=== PATIENT | male | born 1995 | race Caucasian/White ===

== ENCOUNTER 2019-12-06 16:02 | Inpatient (IN) ==
--- NOTE | 2019-12-06 16:44 | Emergency Department Note ---
Impression & Plan Septic prepatellar bursitis of right knee, Fever ED Provider Note NAME: ABBIE GUILLORY AGE: 24 SEX: M : 1995 ARRIVES VIA: Walk-In INFORMANT: Patient, ED PROVIDER(S): Mk Sam MD Chief Complaint: Knee pain, fever HPI: Patient is present with concern for knee pain and fever. The patient states he woke up this morning and had some difficulty with ranging the right knee. The patient describes it as hot burning and sharp. The patient did try taking some Aleve this morning with only mild relief. The patient states that touching it or moving it makes it worse. The patient was seen in the outpatient setting and referred here due to concern for his fever. Patient denies any tick bites. Patient does occasionally use alcohol. He does not use tobacco. The patient did receive Rocephin in the outpatient setting. ROS: See HPI for pertinent positives and negatives. A total of 10 systems were reviewed and otherwise negative. Past medical history: See below Surgical history: See below Social history: See below Physical Exam: GENERAL: Mildly ill in appearance. NAD, non-toxic. Wearing a mask. EYE EXAM: Normal conjunctiva. PERRL, no anisocoria and EOM's grossly intact w/o pain. NECK: Supple, no nuchal rigidity, no adenopathy, non-tender. No signs of meningismus. LUNGS: Clear to auscultation. Normal chest wall mechanics. HEART: Tachycardic and regular, no MRG. ABDOMEN: Abdomen soft, non-tender, normo-active bowel sounds, no masses, no rebound or guarding. BACK: No CVA TTP. SKIN: No rashes and no bruising. UPPER EXTREMITIES: Upper extremities are grossly normal. LOWER EXTREMITIES: Warm erythematous superior aspect of the right knee with associated TTP, no crepitus, decreased range of motion secondary to pain, neurovascular intact distally, compartments are soft. NEURO EXAM: A&O x3, cranial nerves II-XII grossly intact, normal speech, moves all 4 extremities on command w/o issue. Differential diagnoses: Septic arthritis, septic bursitis. Viral syndrome, otitis, pharyngitis, pneumonia, influenza, meningitis, urinary tract infection, sepsis, bacteremia, as well as other pathologies. Course: Patient was seen and evaluated the bedside. Full history physical exam was performed. EKG: Indication: Tachycardia Sinus tachycardia rate of 104, normal intervals, normal axis, no obvious ST changes or T WI. Imaging Studies: Radiology results as stated below per my review in the radiologist's interpretation: XR knee RT 3V CLINICAL HISTORY: swelling, redness, fever COMPARISON: None FINDINGS: Alignment of the right knee is anatomic. There is no fracture or join t effusion. There is no osseous lesion. There is no radiographic evidence of osteomyelitis. There is moderate pre and infrapatellar soft tissue swelling. No soft tissue gas is evident. IMPRESSION: 1. No osseous abnormality of the right knee. No joint effusion. 2. Moderate pre and infrapatellar soft tissue swelling. This could reflect cellulitis or bursitis. ACT 112: Negative or not required by law. Electronically signed by: Wei Ellison M.D. 12/06/2019 5:41 PM Dictated: 12/06/191739 Transcribed: 12/06/191739 XR chest 1V portable CLINICAL HISTORY: SEPSIS COMPARISON STUDY: No previous studies for comparison. FINDINGS: Lung volumes are normal. Lungs are clear. There is no pneumothorax or pleural effusion. Cardiac size is normal. Mediastinal contours are normal. There is no evidence for pulmonary edema. Old mid shaft fracture of the right clavicle is noted with callus formation. IMPRESSION: No acute cardiopulmonary findings. ACT 112: Negative or not required by law. Electronically signed by: Wei Ellison M.D. 12/06/2019 5:40 PM Dictated: 12/06/191738 Transcribed: 12/06/191738 Cardiac monitoring: An order was placed for continuous cardiac monitoring. The monitor shows a rate of 104 with sinus tachycardia rhythm. MDM: Patient was seen due to concern for knee pain and fever. The patient did have some prepatellar swelling. The patient does work in [employer] and thus does do a lot of work on his hands and knees. I did perform a quick bedside [id number] ultrasound which did show some prepatellar fluid. No obvious joint effusion. The patient was verbally consented for a bursa aspiration as well as an attempt for a right knee arthrocentesis. The patient did have some cloudy fluid approximate 7 cc removed from the right prepatellar bursa. No fluid was obtained from the right knee joint. Patient did receive vancomycin due to concern for pre-patellar septic bursitis as the patient did have a fever associated white count tachycardia. Patient's kidney function is unremarkable. Tracely elevated bilirubin at 1.3. Lyme's negative. Patient did receive IV fluids. Given the patient's persistent tachycardia and associated symptoms that would meet for sepsis I did recommend that he stay for further treatment. Patient's x-ray only showed the prepatellar swelling. Given this and the fact that I was unable to see a large amount of joint fluid upon [id number] ultrasound I believe septic arthritis to be less likely. The patient did have improved range of motion after prepatellar aspiration was completed. Furthermor e there was no evidence of any joint effusion on the x-ray. The patient does appear improved compared to when the patient initially had arrived. Patient did have rigors initially but have subsequently resolved. Patient is agreeable to current plan of care. I did speak the on-call hospitalist Dr. Quinn who agreed to further evaluate treat the patient. Patient was subsequently admitted to the medicine service. Past Med/Surg History Medical History (Updated 12/06/19 @ 19:30 by Mk Sam MD) No significant past medical history Surgical History (Updated 12/06/19 @ 19:29 by Mk Sam MD) No significant past surgical history Social History (Updated 12/06/19 @ 19:29 by Mk Sam MD) Preferred Language: Singaporean Communication Ability: Effective current occupational status: 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AC Feels Safe at Home: Yes Smoking Status: Never smoker Hx Alcohol Use: Yes Hx Substance Use: No Allergies Allergies Allergy/AdvReac Type Severity Reaction Status Date / Time No Known Allergies Allergy Unverified 12/06/19 17:26 Home Meds Home Medications Medication Instructions Recorded Confirmed No Known Home Medications 12/06/19 12/06/19 Results & Data (ED) Vital Signs Vital Signs - 24 hr 12/06/19 16:03 12/06/19 18:57 Temperature 37.1 C Temperature Source Oral Pulse Rate 112 H Pulse Rate [Finger] 120 H Respiratory Rate 18 28 H Respiratory Effort / Characteristics Non-Labored Spontaneous Respiratory Depth Normal Respiratory Pattern Regular Blood Pressure 141/76 H Blood Pressure [Right Arm] 153/75 H Blood Pressure Mean 97 Blood Pressure Mean [Right Arm] 101 Pulse Oximetry 97 99 Oxygen Delivery Method Room Air Sepsis Recent Fever Within 48 Hours No Sepsis New/Unexplained Change in Mental Status No Sepsis Action Taken by Nursing No Action Required Home Medications Current Medication List: was personally reviewed by me Laboratory Data Attestation: I reviewed the patient's lab results. Result diagrams: 12/06/19 17:15 12/06/19 17:15 Lab Results 12/06/19 12/06/19 12/06/19 Range/Units 17:15 17:15 17:15 WBC 17.45 H (4.8-10.8) K/uL RBC 4.92 (4.7-6.1) M/uL Hgb 15.1 (14.0-18.0) g/dL Hct 41.7 L (42-52) % MCV 84.8 (80-100) fL MCH 30.7 (25-34) pg MCHC 36.2 H (32-36) g/dL RDW Std Deviation 38.4 (36.4-46.3) fL RDW Coeff of Linda 12.6 (11.5-14.5) % Plt Count 238 (130-400) K/uL MPV 10.9 H (7.4-10.4) fL Immature Gran % (Auto) 0.4 % Neut % (Auto) 88.0 % Lymph % (Auto) 3.8 % [place] % (Auto) 7.7 % Eos % (Auto) 0.0 % Baso % (Auto) 0.1 % Neut # (Auto) 15.36 H (1.4-6.5) K/uL Lymph # (Auto) 0.67 L (1.2-3.4) K/uL [place] # (Auto) 1.34 H (0.11-0.59) K/uL Eos # (Auto) 0.00 (0-0.5) K/uL Baso # (Auto) 0.01 (0-0.2) K/uL Immature Gran # (Auto) 0.07 H (0.00-0.02) K/uL PT 11.6 (9.0-12.0) Seconds INR 1.1 (0.9-1.1) APTT 24.5 (21.0-31.0) Seconds PTT Ratio 0.9 Sodium 135 L (136-145) mmol/L Potassium 4.1 (3.5-5.1) mmol/L Chloride 104 (98-107) mmol/L Carbon Dioxide 25 (21-32) mmol/L Anion Gap 6.0 (3-11) BUN 14 (7-18) mg/dl Creatinine 0.95 (0.6-1.4) mg/dl Est Cr Clr Drug Dosing 122.7 ml/min Est GFR ( Amer) 128.4 Est GFR (Non-Af Amer) 110.8 BUN/Creatinine Ratio 15.0 (10-20) Glucose 93 (70-99) mg/dl Lactate (0.4-2.0) mmol/L Calcium 9.5 (8.5-10.1) mg/dl Magnesium 2.0 (1.8-2.4) mg/dl Total Bilirubin 1.3 H (0.2-1) mg/dl AST 15 (15-37) U/L ALT 30 (12-78) U/L Alkaline Phosphatase 75 (45-117) U/L Total Protein 8.4 H (6.4-8.2) gm/dl Albumin 4.7 (3.4-5.0) gm/dl Globulin 3.7 (2.5-4.0) gm/dl Albumin/Globulin Ratio 1.3 (0.9-2) Procalcitonin (0-0.5) ng/ml Synovial Source Synovial Color Synovial Appearance Synovial WBC (0-200) /ul Synovial RBC /uL Synovial Polynuclear % % Synovial Mononuclear % % Lyme Disease IgG Ab (Negative) Lyme Disease IgM Ab (Negative) 12/06/19 12/06/19 12/06/19 Range/Units 17:15 17:15 18:20 WBC (4.8-10.8) K/uL RBC (4.7-6.1) M/uL Hgb (14.0-18.0) g/dL Hct (42-52) % MCV (80-100) fL MCH (25-34) pg MCHC (32-36) g/dL RDW Std Deviation (36.4-46.3) fL RDW Coeff of Linda (11.5-14.5) % Plt Count (130-400) K/uL MPV (7.4-10.4) fL Immature Gran % (Auto) % Neut % (Auto) % Lymph % (Auto) % [place] % (Auto) % Eos % (Auto) % Baso % (Auto) % Neut # (Auto) (1.4-6.5) K/uL Lymph # (Auto) (1.2-3.4) K/uL [place] # (Auto) (0.11-0.59) K/uL Eos # (Auto) (0-0.5) K/uL Baso # (Auto) (0-0.2) K/uL Immature Gran # (Auto) (0.00-0.02) K/uL PT (9.0-12.0) Seconds INR (0.9-1.1) APTT (21.0-31.0) Seconds PTT Ratio Sodium (136-145) mmol/L Potassium (3.5-5.1) mmol/L Chloride (98-107) mmol/L Carbon Dioxide (21-32) mmol/L Anion Gap (3-11) BUN (7-18) mg/dl Creatinine (0.6-1.4) mg/dl Est Cr Clr Drug Dosing ml/min Est GFR ( Amer) Est GFR (Non-Af Amer) BUN/Creatinine Ratio (10-20) Glucose (70-99) mg/dl Lactate 1.1 (0.4-2.0) mmol/L Calcium (8.5-10.1) mg/dl Magnesium (1.8-2.4) mg/dl Total Bilirubin (0.2-1) mg/dl AST (15-37) U/L ALT (12-78) U/L Alkaline Phosphatase (45-117) U/L Total Protein (6.4-8.2) gm/dl Albumin (3.4-5.0) gm/dl Globulin (2.5-4.0) gm/dl Albumin/Globulin Ratio (0.9-2) Procalcitonin 0.19 (0-0.5) ng/ml Synovial Source KNEE Synovial Color YELLOW Synovial Appearance CLOUDY Synovial WBC 52018 H (0-200) /ul Synovial RBC 3000 /uL Synovial Polynuclear % 67.7 % Synovial Mononuclear % 32.3 % Lyme Disease IgG Ab Negative (Negative) Lyme Disease IgM Ab Negative (Negative) Administered Medications Vancomycin HCl 2,000 mg/ (Sodium Chloride) 540 mls @ 200 mls/hr IV NOW ONE Stop: 12/06/19 21:05 Last Admin: 12/06/19 18:53 Dose: 200 mls/hr Documented by: [id number] Sodium Chloride (Nss 1000ml) 1,000 mls @ 999 mls/hr IV .Q1H1M ONE Stop: 12/06/19 19:25 Last Admin: 12/06/19 18:53 Dose: 999 mls/hr Documented by: [id number] Discontinued Medications Acetaminophen (Tylenol) 1,000 mg PO NOW STA Stop: 12/06/19 16:50 Last Admin: 12/06/19 17:41 Dose: 1,000 mg Documented by: [id number] Sodium Chloride (Nss 1000ml) 1,000 mls @ 999 mls/hr IV .Q1H1M ONE Stop: 12/06/19 17:49 Last Infusion: 12/06/19 18:50 Dose: 0 mls/hr Documented by: [id number] Admin: 12/06/19 17:41 Dose: 999 mls/hr Documented by: [id number] Lidocaine/Epinephrine (Xylocaine/Epinephrine 1%) 20 ml INFIL NOW ONE Stop: 12/06/19 16:51 Last Admin: 12/06/19 17:42 Dose: 20 ml Documented by: [id number] Lorazepam (Ativan) Confirm Administered Dose 2 mg .ROUTE .STK-MED ONE Stop: 12/06/19 18:01 Last Increment: 12/06/19 18:02 Dose: 1 mg Documented by: [id number] Discharge Plan Visit Data Chief Complaint: Knee Injury/Pain Stated Complaint: RIGHT KNEE PAIN, SWOLLEN ED Provider: Mk Sam Discharge Problem: Septic prepatellar bursitis of right knee, Fever Forms Stand Alone Forms: [facility] Prescriptions Prescriptions: No Action No Known Home Medications RF: 0 Discharge Problem: Fever Qualifiers: Fever type: unspecified Qualified Code(s): R50.9 - Fever, unspecified
[2019-12-06] MEDS ORDERED: SODIUM CHLORIDE 0.9% 1000ML 1,000 ML IV ONE ×2 (16:49→18:25)
[2019-12-06] MEDS ORDERED: ACETAMINOPHEN 500 MG TAB PO STA (16:49)
[2019-12-06] MEDS ORDERED: LIDOCAINE/EPINEPHRINE 1% 20 ML VIAL INFIL ONE (16:50)
[2019-12-06 17:30] LABS: Basophils # (auto) 0.01 K/uL (0-0.2); Basophils % (auto) 0.1 %; Hematocrit (blood only) 41.7 % (42-52); Hemoglobin 15.1 g/dL (14.0-18.0); Immature Granulocytes # (auto) 0.07 K/uL (0.00-0.02); Immature Granulocytes % (auto) 0.4 %; Lymphocytes # (auto) 0.67 K/uL (1.2-3.4); Lymphocytes % (auto) 3.8 %; Mean Corpuscular Hemoglobin 30.7 pg (25-34); Mean Corpuscular Hgb Conc 36.2 g/dL (32-36); Mean Corpuscular Volume 84.8 fL (80-100); Mean Platelet Volume 10.9 fL (7.4-10.4); Monocytes # (auto) 1.34 K/uL (0.11-0.59); Monocytes % (auto) 7.7 %; Neutrophils # (auto) 15.36 K/uL (1.4-6.5); Platelet Count 238 K/uL (130-400); RDW Coefficient of Variation 12.6 % (11.5-14.5); RDW Standard Deviation 38.4 fL (36.4-46.3); Red Blood Count 4.92 M/uL (4.7-6.1); White Blood Count 17.45 K/uL (4.8-10.8)
--- NOTE | 2019-12-06 17:41 | XRay Report ---
XR chest 1V portable CLINICAL HISTORY: SEPSIS COMPARISON STUDY: No previous studies for comparison. FINDINGS: Lung volumes are normal. Lungs are clear. There is no pneumothorax or pleural effusion. Car diac size is normal. Mediastinal contours are normal. There is no evidence for pulmonary edema. Old m id shaft fracture of the right clavicle is noted with callus formation. IMPRESSION: No acute cardiopulmonary findings. ACT 112: Negative or not required by law. Electronically signed by: Wei Ellison M.D. 12/06/2019 5:40 PM
[2019-12-06 17:42] LABS: INR 1.1 (0.9-1.1); Partial Thromboplastin Ratio 0.9; Partial Thromboplastin Time 24.5 Seconds (21.0-31.0); Prothrombin Time 11.6 Seconds (9.0-12.0)
--- NOTE | 2019-12-06 17:42 | XRay Report ---
XR knee RT 3V CLINICAL HISTORY: swelling, redness, fever COMPARISON: None FINDINGS: Alignment of the right knee is anatomic. There is no fracture or joint effusion. There is no osseous lesion. There is no radiographic evidence of osteomyelitis. There is moderate pre and infr apatellar soft tissue swelling. No soft tissue gas is evident. IMPRESSION: 1. No osseous abnormality of the right knee. No joint effusion. 2. Moderate pre and infrapatellar soft tissue swelling. This could reflect cellulitis or bursitis. ACT 112: Negative or not required by law. Electronically signed by: Wei Ellison M.D. 12/06/2019 5:41 PM
[2019-12-06 17:47] LABS: Albumin Level 4.7 gm/dl (3.4-5.0); Calcium 9.5 mg/dl (8.5-10.1); Creatinine Clr Calc Pharmacy 122.7 ml/min; Est GFR (African American) 128.4; Est GFR (Non-African American) 110.8; Potassium 4.1 mmol/L (3.5-5.1)
[2019-12-06 17:50] LABS: Albumin Globulin Ratio 1.3 (0.9-2); Bilirubin,Total 1.3 mg/dl (0.2-1); Globulin 3.7 gm/dl (2.5-4.0); Total Protein 8.4 gm/dl (6.4-8.2)
[2019-12-06] MEDS ORDERED: LORazepam 2 MG/4 ML VIAL ONE (18:00)
[2019-12-06 18:08] LABS: Procalcitonin 0.19 ng/ml (0-0.5)
[2019-12-06 18:18] LABS: Lyme Ab IgG w/WB Rflx Negative (Negative); Lyme Ab IgM w/WB Rflx Negative (Negative)
[2019-12-06] MEDS ORDERED: VANCOMYCIN HCL 2,000 MG in SODIUM CHLORIDE 0.9% 500 ML IV ONE (18:24)
[2019-12-06] MEDS ORDERED: VANCOMYCIN CONSULT ACTIVE PRN ×2 (18:24→19:48)
[2019-12-06 19:11] LABS: Appearance Synovial Fluid CLOUDY; Color Synovial Fluid YELLOW; Mononuclear WBC Synovial 32.3 %; Polynuclear WBC Synovial 67.7 %; RBC Synovial Fluid (A) 3000 /uL; Source Synovial Fluid KNEE; WBC Synovial Fluid (A) 19313 /ul (0-200)
[2019-12-06] MEDS ORDERED: ZOLPIDEM TARTRATE 5 MG TAB PO PRN (19:48)
[2019-12-06] MEDS ORDERED: ONDANSETRON INJ 2 MG/ML 2 ML VIAL IV PRN (19:48)
[2019-12-06] MEDS ORDERED: LORazepam 1 MG/2 ML VIAL IV STA (20:18)
[2019-12-06 20:25] LABS: Appearance Urine Clear (Clear); Bilirubin Urine Negative (Negative); Blood Urine Negative (Negative); Color Urine Yellow; Glucose Urine UA Negative (Negative); Ketones Urine 2+ (Negative); Leukocyte Esterase Urine Negative (Negative); Nitrite Urine Negative (Negative); Protein Urine Negative (Negative); Specific Gravity Urine 1.014 (1.000-1.030); Urobilinogen Urine Negative (Negative)
--- NOTE | 2019-12-06 20:53 | History & Physical Report ---
Date of Service December 06, 2019 Assessment & Plan (1) Septic prepatellar bursitis of right knee: Septic prepatellar bursitis of right knee with associated fever, sinus tachycardia and dehydration- Status post drainage by ED[place] [address]. Continue vancomycin IV begun in the ED, and add ceftriaxone 1 g IV daily. Follow joint culture and sensitivities Present on Admission?: Yes (2) Fever: Tylenol 650 mg p.o. every 6 hours as needed Present on Admission?: Yes (3) Sinus tachycardia: Sinus tachycardia secondary to dehydration and sepsis- Continue IV fluid rehydration. Monitor on telemetry. Present on Admission?: Yes (4) Dehydration: See above Present on Admission?: Yes Admission and Anticipated Discharge Date Admission Date: December 06, 2019 History of Present Illness Chief Complaint: The patient presents to the ED with complaint of right knee pain and fever. Primary Care Provider: Can Goldstein The patient is a 24yo male with no significant PMH who presents to the ED with complaint of right knee pain and fever that began today. He does work on his hands and knees alot at work and at home, and has noted an occasional sharp pain as he has shifted his work over time. He denies recent travels or sick exposures. No history of direct trauma. No tick bites, Allergies Allergy/AdvReac Type Severity Reaction Status Date / Time No Known Allergies Allergy Unverified 12/06/19 17:26 Home Medications Home Medications Medication Instructions Recorded Confirmed Type No Known Home Medications 12/06/19 12/06/19 History Past Med/Surg History Medical History (Updated 12/06/19 @ 20:51 by Bruce Kamara MD) No significant past medical history Surgical History (Updated 12/06/19 @ 19:29 by Mk Sam MD) No significant past surgical history Social History (Updated 12/06/19 @ 19:29 by Mk Sam MD) Preferred Language: Haitian Communication Ability: Effective current occupational status: 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[employer] Feels Safe at Home: Yes Smoking Status: Never smoker Hx Alcohol Use: Yes Hx Substance Use: No Review of Systems Review of Systems: The patient denies chest pain, palpitations, shortness of breath, dyspnea on exertion, cough, sore throat, sweats,fatigue, nausea, vomiting, diarrhea , constipation, abdominal pain, pelvic pain, blood in urine or stool, dysuria, urinary frequency or urgency, lightheadedness, dizziness, headache, memory loss, loss of consciousness, rash, abnormal bruising or bleeding, focal or generalized weakness, numbness or tingling in arms , generalized arthralgias or myalgias, back or neck pain, or night sweats. The review of systems is otherwise negative other than for that already noted above, and at least 10 systems have been reviewed. Physical Exam Physical Exam: The patient is awake, alert and oriented 3, well developed and well nourished, normocephalic and atraumatic, lying in bed and in no acute distress. HEENT--PERRL, EOMI, mucous membranes and oropharynx dry. Neck--supple. No JVD. No bruits. Thyroid normal, trachea midline, no adenopathy. Heart--tachycardic and regular. Normal S1 and S2. No murmurs, rubs or gallops. Lungs--clear bilaterally, no respiratory distress, no accessory muscle use. Abdomen--normal bowel sounds and soft. Nontender. Nondistended, no hernias or masses, no organomegaly. Extremities--no cyanosis or clubbing. No edema. There are good distal pulses b/l. Dermatologic--normal skin turgor, normal color, no abnormal lymph nodes, no rash. Neurologic--cranial nerves II through XII grossly intact. Rheumatologic--normal range of motion. right knee is s/p draining of prepatellar bursa. Psychiatric--normal affect. Results & Data Results & Data ([facility]) Vital Signs (Past 12 Hours) Vital Signs Temp Pulse Pulse Resp BP BP Pulse Ox 12/06/19 20:21 120 H 13 99 12/06/19 20:10 113 H 20 97 12/06/19 20:02 115 H 21 97 12/06/19 19:51 116 H 21 98 12/06/19 19:40 125 H 27 H 98 12/06/19 19:30 122 H 21 127/60 99 12/06/19 19:21 124 H 21 100 12/06/19 19:10 113 H 22 98 12/06/19 19:00 117 H 19 129/59 L 98 12/06/19 18:57 120 H 28 H 153/75 H 99 12/06/19 18:50 115 H 22 99 12/06/19 18:41 114 H 21 100 12/06/19 18:35 119 H 22 153/75 H 98 12/06/19 18:30 113 H 14 98 12/06/19 18:20 117 H 20 99 12/06/19 18:11 117 H 18 99 12/06/19 18:00 116 H 16 12/06/19 17:50 106 H 20 12/06/19 17:41 104 H 15 12/06/19 16:03 98.8 F 112 H 18 141/76 H 97 Laboratory Results Laboratory Results WBC 17.45 K/uL (4.8-10.8) H 12/06/19 17:15 RBC 4.92 M/uL (4.7-6.1) 12/06/19 17:15 Hgb 15.1 g/dL (14.0-18.0) 12/06/19 17:15 Hct 41.7 % (42-52) L 12/06/19 17:15 MCV 84.8 fL (80-100) 12/06/19 17:15 MCH 30.7 pg (25-34) 12/06/19 17:15 MCHC 36.2 g/dL (32-36) H 12/06/19 17:15 RDW Std Deviation 38.4 fL (36.4-46.3) 12/06/19 17:15 RDW Coeff of Linda 12.6 % (11.5-14.5) 12/06/19 17:15 Plt Count 238 K/uL (130-400) 12/06/19 17:15 MPV 10.9 fL (7.4-10.4) H 12/06/19 17:15 Immature Gran % (Auto) 0.4 % 12/06/19 17:15 Neut % (Auto) 88.0 % 12/06/19 17:15 Lymph % (Auto) 3.8 % 12/06/19 17:15 [place] % (Auto) 7.7 % 12/06/19 17:15 Eos % (Auto) 0.0 % 12/06/19 17:15 Baso % (Auto) 0.1 % 12/06/19 17:15 Neut # (Auto) 15.36 K/uL (1.4-6.5) H 12/06/19 17:15 Lymph # (Auto) 0.67 K/uL (1.2-3.4) L 12/06/19 17:15 [place] # (Auto) 1.34 K/uL (0.11-0.59) H 12/06/19 17:15 Eos # (Auto) 0.00 K/uL (0-0.5) 12/06/19 17:15 Baso # (Auto) 0.01 K/uL (0-0.2) 12/06/19 17:15 Immature Gran # (Auto) 0.07 K/uL (0.00-0.02) H 12/06/19 17:15 PT 11.6 Seconds (9.0-12.0) 12/06/19 17:15 INR 1.1 (0.9-1.1) 12/06/19 17:15 APTT 24.5 Seconds (21.0-31.0) 12/06/19 17:15 PTT Ratio 0.9 12/06/19 17:15 Sodium 135 mmol/L (136-145) L 12/06/19 17:15 Potassium 4.1 mmol/L (3.5-5.1) 12/06/19 17:15 Chloride 104 mmol/L (98-107) 12/06/19 17:15 Carbon Dioxide 25 mmol/L (21-32) 12/06/19 17:15 Anion Gap 6.0 (3-11) 12/06/19 17:15 BUN 14 mg/dl (7-18) 12/06/19 17:15 Creatinine 0.95 mg/dl (0.6-1.4) 12/06/19 17:15 Est Cr Clr Drug Dosing 122.7 ml/min 12/06/19 17:15 Est GFR ( Amer) 128.4 12/06/19 17:15 Est GFR (Non-Af Amer) 110.8 12/06/19 17:15 BUN/Creatinine Ratio 15.0 (10-20) 12/06/19 17:15 Glucose 93 mg/dl (70-99) 12/06/19 17:15 Lactate 1.1 mmol/L (0.4-2.0) 12/06/19 17:15 Calcium 9.5 mg/dl (8.5-10.1) 12/06/19 17:15 Magnesium 2.0 mg/dl (1.8-2.4) 12/06/19 17:15 Total Bilirubin 1.3 mg/dl (0.2-1) H 12/06/19 17:15 AST 15 U/L (15-37) 12/06/19 17:15 ALT 30 U/L (12-78) 12/06/19 17:15 Alkaline Phosphatase 75 U/L (45-117) 12/06/19 17:15 Total Protein 8.4 gm/dl (6.4-8.2) H 12/06/19 17:15 Albumin 4.7 gm/dl (3.4-5.0) 12/06/19 17:15 Globulin 3.7 gm/dl (2.5-4.0) 12/06/19 17:15 Albumin/Globulin Ratio 1.3 (0.9-2) 12/06/19 17:15 Procalcitonin 0.19 ng/ml (0-0.5) 12/06/19 17:15 Urine Color Yellow 12/06/19 20:00 Urine Appearance Clear (Clear) 12/06/19 20:00 Urine pH 5.0 (4.5-7.5) 12/06/19 20:00 Ur Specific [place] 1.014 (1.000-1.030) 12/06/19 20:00 Urine Protein Negative (Negative) 12/06/19 20:00 Urine Glucose (UA) Negative (Negative) 12/06/19 20:00 Urine Ketones 2+ (Negative) H 12/06/19 20:00 Urine Blood Negative (Negative) 12/06/19 20:00 Urine Nitrite Negative (Negative) 12/06/19 20:00 Urine Bilirubin Negative (Negative) 12/06/19 20:00 Urine Urobilinogen Negative (Negative) 12/06/19 20:00 Ur Leukocyte Esterase Negative (Negative) 12/06/19 20:00 Synovial Source KNEE 12/06/19 18:20 Synovial Color YELLOW 12/06/19 18:20 Synovial Appearance CLOUDY 12/06/19 18:20 Synovial WBC 49319 /ul (0-200) H 12/06/19 18:20 Synovial RBC 3000 /uL 12/06/19 18:20 Synovial Polynuclear % 67.7 % 12/06/19 18:20 Synovial Mononuclear % 32.3 % 12/06/19 18:20 Lyme Disease IgG Ab Negative (Negative) 12/06/19 17:15 Lyme Disease IgM Ab Negative (Negative) 12/06/19 17:15 Diagnostic Findings [facility], [place] [phone] XRay Report Patient: ABBIE GUILLORY Date: 12/06/19 MR#: [id number]: [facility] [facility] Acct ID:[id number]: Date: 1995[facility] Zip: [place] [id number] Age: 24Location: ED Sex: M Room/Bed: Att Phy:Diagnosis: RIGHT KNEE PAIN, SWOLLEN Summer Phy: Can Goldstein, MARKervice Date: 12/06/19 Fam Phy:Interpreting Phy: Wei Ellison MD Admit Phy: Ordering Phy: Mk Sam MD cc: ~ XR chest 1V portable CLINICAL HISTORY: SEPSIS COMPARISON STUDY: No previous studies for comparison. FINDINGS: Lung volumes are normal. Lungs are clear. There is no pneumothorax or pleural effusion. Cardiac size is normal. Mediastinal contours are normal. There is no evidence for pulmonary edema. Old mid shaft fracture of the right clavicle is noted with callus formation. IMPRESSION: No acute cardiopulmonary findings. ACT 112: Negative or not required by law. Electronically signed by: Wei Ellison M.D. 12/06/2019 5:40 PM Dictated: 12/06/19 1739 Transcribed: 12/06/19 1739 [facility], [place] [phone] XRay Report Patient: ABBIE GUILLORY Date: 12/06/19 MR#: [id number]: [address] [facility] Acct ID:[id number]: Date: 1995[facility] Zip: [place] [id number] Age: 24Location: ED Sex: M Room/Bed: Att Phy:Diagnosis: RIGHT KNEE PAIN, SWOLLEN Summer Phy: Can Goldstein, MARKervice Date: 12/06/19 Fam Phy:Interpreting Phy: Wei Ellison MD Admit Phy: Ordering Phy: Mk Sam MD cc: ~ XR knee RT 3V CLINICAL HISTORY: swelling, redness, fever COMPARISON: None FINDINGS: Alignment of the right knee is anatomic. There is no fracture or joint effusion. There is no osseous lesion. There is no radiographic evidence of osteomyelitis. There is moderate pre and infrapatellar soft tissue swelling. No soft tissue gas is evident. IMPRESSION: 1. No osseous abnormality of the right knee. No joint effusion. 2. Moderate pre and infrapatellar soft tissue swelling. This could reflect cellulitis or bursitis. ACT 112: Negative or not required by law. Electronically signed by: Wei Ellison M.D. 12/06/2019 5:41 PM Dictated: 12/06/191739 Transcribed: 12/06/191739 Code Status & VTE Plan Code Status Full code VTE Prophylaxis Plan VTE Prophylaxis will be ordered: Yes PG Care Time/CCT Total # of Minutes Spent Total Time Spent with Patient: Total time spent is greater than 50% in coordination of care (as documented) at patient's floor/unit and/or counseling patient: Coding Level of Care Code 90090 Initial Inpt Care Lvl 2 Diagnoses Septic prepatellar bursitis of right knee M71.161 Fever R50.9 Fever type: unspecified Sinus tachycardia R00.0 Dehydration E86.0 (1) Fever Fever type: unspecified Qualified Code(s): R50.9 - Fever, unspecified
--- NOTE | 2019-12-06 21:10 | Pharmacy Report ---
Pharmacy Abx Initial Consult - Date of Service December 06, 2019 - Pharmacy Dosing Scope Date of Consult: 12/06/19 Consultation requested by: Dr. Kamara Pharmacy is consulted to initiate Vancomycin IV dosing therapy, order appropriate labs and adjust drug dose/frequency. - Subjective The patient is a 24 year old M admitted on 12/06/19 19:48. - Objective Height: 5 ft 10 in Weight: 76 kg Vital Signs (Past 12hrs): Vital Signs Temp Pulse Pulse Resp BP BP Pulse Ox 12/06/19 20:21 120 H 13 99 12/06/19 20:10 113 H 20 97 12/06/19 20:02 115 H 21 97 12/06/19 19:51 116 H 21 98 12/06/19 19:40 125 H 27 H 98 12/06/19 19:30 122 H 21 127/60 99 12/06/19 19:21 124 H 21 100 12/06/19 19:10 113 H 22 98 12/06/19 19:00 117 H 19 129/59 L 98 12/06/19 18:57 120 H 28 H 153/75 H 99 12/06/19 18:50 115 H 22 99 12/06/19 18:41 114 H 21 100 12/06/19 18:35 119 H 22 153/75 H 98 12/06/19 18:30 113 H 14 98 12/06/19 18:20 117 H 20 99 12/06/19 18:11 117 H 18 99 12/06/19 18:00 116 H 16 12/06/19 17:50 106 H 20 12/06/19 17:41 104 H 15 12/06/19 16:03 37.1 C 112 H 18 141/76 H 97 Lab Results (24hrs): Laboratory Tests (24 Hours) 12/06/19 12/06/19 12/06/19 17:15 17:15 17:15 WBC 17.45 H Neut # (Auto) 15.36 H Creatinine 0.95 Est Cr Clr Drug Dosing 122.7 Procalcitonin 0.19 Micro Results: 12/06/19 18:20 Gram Stain - Pending Knee,Right Aerobic and Anaerobic Culture - Pending 12/06/19 17:15 Aerobic Blood Culture - Pending Blood Anaerobic Blood Culture - Pending 12/06/19 17:15 Aerobic Blood Culture - Pending Blood Anaerobic Blood Culture - Pending - Assessment & Plan Assessment 24 year old M initiated on IV Vanco + Ceftriaxone for septic prepatellar bu rsitis of right knee Plan Vancomycin IV * Patient meets criteria for vancomycin AUC dosing nomogram * AUC/JAQUAN is the preferred PK/PD target for vancomycin * Target AUC/JAQUAN = 400-600 * AUC guided dosing is effective and associated with decreased risk of nephrotoxicity * Loading dose: 2,000 mg (26 mg/kg) * Maintenance dose: 1500 mg IV (19 mg/kg) every 8 hours * Goal trough level for bone/joint : 15 to 20 mcg/mL * Trough level ordered for 12/08/19 @ 0930 (prior to 5th maintenance dose) Pharmacy will continue to follow and will adjust dose/frequency as necessary. Thank you.
[2019-12-06] MEDS: cefTRIAXone SODIUM 1,000 MG in DEXTROSE 5% 50 ML IV SCH (22:06)
[2019-12-06] MEDS: NSS + 20MEQ KCL 20 MEQ/1,000 ML BAG IV SCH (22:06)
[2019-12-07] MEDS: VANCOMYCIN HCL 1,500 MG in SODIUM CHLORIDE 0.9% 500 ML IV SCH ×3 (02:17→17:18)
[2019-12-07] MEDS: ACETAMINOPHEN 325 MG TAB PO PRN ×2 (04:33→12:19)
[2019-12-07] MEDS: NSS + 20MEQ KCL 20 MEQ/1,000 ML BAG IV SCH ×2 (07:49→18:03)
[2019-12-07 07:53] LABS: Est GFR (African American) 137.7; Est GFR (Non-African American) 118.8
--- NOTE | 2019-12-07 08:18 | Electrocardiogram Report ---
Test Reason : Blood Pressure : / mmHG Vent. Rate : 104 BPM Atrial Rate : 104 BPM P-R Int : 146 ms QRS Dur : 100 ms QT Int : 318 ms P-R-T Axes : 074 055 054 degrees QTc Int : 418 ms Sinus tachycardia Nonspecific T wave abnormality Abnormal ECG When compared with ECG of 30-MAR-2004 14:00, Nonspecific T wave abnormality is now Present in anterolateral leads Confirmed by Scot Milan ([id number]) on 12/07/2019 8:18:03 AM Referred By: REFERRED SELF Confirmed By:Scot Milan
[2019-12-07] MEDS ORDERED: VANCOMYCIN HCL 1,000 MG in SODIUM CHLORIDE 0.9% 250 ML IV SCH (09:00)
--- NOTE | 2019-12-07 09:18 | Hospitalist Progress Note ---
Date of Service December 07, 2019 Assessment & Plan (1) Septic prepatellar bursitis of right knee: 24 yo M no PMHx admitted for septic prepatellar bursitis of the R knee. Sepsis 2/2 prepatellar bursitis of right knee: - Status post drainage by ED, and patient with subjective improvement in symp toms. - WBC 17.45 yesterday afternoon[place] [address]. - BCx drawn prior to starting vanc/ceftriaxone. - Tylenol 650 mg p.o. every 6 hours as needed - Sinus tachycardia likely secondary to dehydration and sepsis. - Will ave Orthopedic service see him tomorrow. - Follow joint/ BCx culture and sensitivities. Likely d/c home tomorrow if BCx negative and Orthopedic service ok with d/c. Code Status: FULL CODE FEN/GI: Regular DVT ppx: very low risk, ad clovis on demand Dispo: med/surg Admission and Anticipated Discharge Date Admission Date: December 06, 2019 Supervising Physician Co-Signing Physician Notes Patient seen and examined with PGY-2 Dr. Vasquez. Agree with history, exam findings, assessment and plan as outlined. In brief, Mr. Rios is a healthy 24 year old male admitted with septic prepatellar bursitis. Reviewed ED notes and admission history and physical. Since the bursa was drained and antibiotics were started, reports that he is feeling much better. The left knee still feels a bit tight, but overall feels much better. Did have a fever overnight. On exam, the left knee is a big boggy and spongy feeling in the area of the prepatellar bursa. There is some increased wamth and erythema overlying the knee as well as down the medial and lateral aspects of the knee extending to the proximal 1/4th of the left lower leg. Septic prepatellar bursitis. s/p drainage in the ED. fluid with 19K WBCs, growing light staph. Serum WBCs 17. Lyme negative. Stop vanc, continue ceftriaxone. Follow leukocytosis. If minimal improvement, consider orthopedic consult for drainage/wash out/removal of bursa. Dispo: pending clinical improvement. Subjective Patient was febrile early this morning to 38.0, tachy to 115 which quickly resolved. Feels very well this AM, able to move knee in full ROM without significant pain. Area feels "tight". Denies subjective chills, no chest pain or palpitations, no SOB, constipation, diarrhea, nausea or vomiting. Review of Systems Review of Systems: All systems reviewed & are unremarkable except as noted in Subjective Physical Exam Constitutional: WD/WN, vitals as above Respiratory: normal respiratory effort, lungs clear to auscultation Cardiovascular: RRR, no murmur, no edema Musculoskeletal: L prepatellar bursa spongy but not taught. No clear joint effusion. Some soft tissue swelling L knee as compared to R knee. Some erythema 1[address] down the tibia on medial and lateral sides of LLE, improved from yesterday. Full ROM without pain Skin: erythema as described above Psychiatric: A+Ox3, euthymic affect Results & Data Results & Data ([facility]) Vital Signs (Past 12 Hours) Vital Signs Temp Pulse Pulse Resp BP Pulse Ox 12/07/19 08:00 37.2 C 89 18 114/68 100 12/07/19 07:18 87 12/07/19 03:58 38.0 C H 117 H 20 117/60 97 12/06/19 23:33 37.4 C 115 H 20 115/59 L 100 Resident Activity Tracking Resident Involvement: Resident Care Provided Care Provided: Adult Hospital Medicine
[2019-12-07] MEDS: cefTRIAXone SODIUM 1,000 MG in DEXTROSE 5% 50 ML IV SCH (21:16)
[2019-12-08] MEDS: VANCOMYCIN HCL 1,500 MG in SODIUM CHLORIDE 0.9% 500 ML IV SCH (03:22)
[2019-12-08] MEDS: NSS + 20MEQ KCL 20 MEQ/1,000 ML BAG IV SCH (03:23)
[2019-12-08] MEDS ORDERED: VANCOMYCIN TROUGH ONE (09:30)
[2019-12-08 09:54] LABS: Basophils # (auto) 0.02 K/uL (0-0.2); Basophils % (auto) 0.3 %; Eosinophils # (auto) 0.13 K/uL (0-0.5); Eosinophils % (auto) 1.7 %; Immature Granulocytes # (auto) 0.01 K/uL (0.00-0.02); Immature Granulocytes % (auto) 0.1 %; Lymphocytes % (auto) 18.2 %; Mean Corpuscular Hemoglobin 30.2 pg (25-34); Mean Corpuscular Hgb Conc 35.1 g/dL (32-36); Mean Platelet Volume 10.8 fL (7.4-10.4); Monocytes % (auto) 7.8 %; Neutrophils # (auto) 5.52 K/uL (1.4-6.5); Neutrophils % (auto) 71.9 %; Platelet Count 195 K/uL (130-400); RDW Coefficient of Variation 12.9 % (11.5-14.5); RDW Standard Deviation 40.7 fL (36.4-46.3); White Blood Count 7.68 K/uL (4.8-10.8)
[2019-12-08 10:26] LABS: BUN Creatinine Ratio 6.5 (10-20); Calcium 8.8 mg/dl (8.5-10.1); Creatinine Clr Calc Pharmacy 132.5 ml/min; Est GFR (African American) 138.4; Est GFR (Non-African American) 119.4; Potassium 3.7 mmol/L (3.5-5.1)
--- NOTE | 2019-12-08 17:23 | Discharge Summary ---
Date of Service December 08, 2019 Admission HPI Per Admitting Provider The patient is a 24yo male with no significant PMH who presents to the ED with complaint of right knee pain and fever that began today. He does work on his hands and knees alot at work and at home, and has noted an occasional sharp pain as he has shifted his work over time. He denies recent travels or sick exposures. No history of direct trauma. No tick bites, Principal Diagnosis septic prepatellar bursitis Discharge Exam gen aaox3 [place] heent nc at mmm breathing unlabored no accessory muscles good effort skin shows R knee dull erythema mild nontender fluctuance of anterior knee - he notes far better than it was. nontender. no pallor or icterus neuro no focal deficits Discharge Data Allergies Allergy/AdvReac Type Severity Reaction Status Date / Time No Known Allergies Allergy Unverified 12/06/19 17:26 Consultations 12/06/19 19:32 ED Decision to Admit Stat 12/06/19 19:50 Consult Case Management - Discharge Planning Routine Hospital Course (1) Septic prepatellar bursitis of right knee: Septic prepatellar bursitis of right knee with associated fever, sinus tachycardia and dehydration- Status post drainage by ED. -fortunately growing MSSA -sepsis resolved -stable for home --> since MSSA but septic bursitis - will complete course of abx w cephalexin -PCP f/u near end of course of abx Total Time Total Time Spent Total Time Spent (In Minutes): <30 Discharge Plan Discharge Items Patient Disposition: Home - Self-Care Reason For Visit: PREPATELLAR BURSITIS, SEPSIS Discharge Diagnosis: septic bursitis Activity: Per Instructions section Non-emergency contact: Primary Care Provider Call non-emergency contact if: your symptoms worsen and your temperature is above 101 Follow-up/Referrals: Can Goldstein [Primary Care Provider] - Diet: Regular Addtl Attending Provider Instructions: Septic Bursitis: You were admitted with swelling of your right knee and upon imaging and evaluation you were found to have inflammation of the right knee. The prepate llar bursa is a fluid filled sac that was drained and the fluid was sent for evaluation. The fluid from your bursa was found to contain bacteria. You were on IV antibiotics and this will be transitioned to oral antibiotics. You will need to take the oral antibiotics (cephalexin) for 10 days. Follow up: You will need to see your primary care doctor in around 1 week after leaving the hospital. You primary doctor will evaluate you at this time and ensure that you are doing clinically better and no worsening of your symptoms. It is possible that you may also need to have the bursa drained if more fluid accumulates. Return precautions: If any of these symptoms develop please call or come in to get evaluated. - If you are having fevers with a temp. of 101 F or higher. - If you are having worsening of the redness and swelling around your right knee. - If you have redness that travels up your leg. BURSITIS OVERVIEW Bursitis is an inflammation or irritation of the bursae (plural of "bursa"). The bursae are fluid-filled sacs around joints and tendons, which decrease friction from movement and provide a cushion between bones, tendons, muscles, and skin. Bursitis can be rapid in onset (acute) or build up slowly over time (chronic). Acute bursitis is often the result of an injury, infection, or inflammatory condition. Chronic bursitis often follows a long period of repetitive use, motion, or compression. Bursitis can involve almost any joint in the body, although some areas are more commonly affected than others. BURSITIS CAUSES Causes of bursitis include: Injury, such as from a fall or hit; this usually causes bleeding into a bursa. People who take anticoagulant medications (blood thinners) to prevent or treat b lood clots are at higher risk for this condition. Infection resulting from bacteria entering the body through a cut or scrape in the skin. Gout or other crystal diseases. Certain types of arthritis, like rheumatoid arthritis or psoriatic arthritis. Prolonged pressure, which can result from kneeling, sitting, or leaning on a particular joint for a long period. Strain or overuse from repeating the same motion many times Joint stress from an abnormal gait; for example, walking unevenly because one leg is shorter than the other Common symptoms of bursitis include pain and/or swelling at the affected site. Visible swelling is more common in superficial bursae that are closer to the surface of the skin, such as those around the elbows, kneecaps, and heels. Swelling is less commonly a feature of bursitis that affects deep structures, such as the bursae of the shoulders, hips, and inner knees. In acute bursitis, there are often features of inflammation at the bursa. Pain is a universal feature, and typically localizes directly over the affected bursa; active motion (when the person moves or bends the joint) also causes pain if the motion stretches the affected bursa. Acute bursitis of a superficial bursa is often accompanied by redness, warmth, and swelling. People with chronic bursitis may have swelling, but usually only if a superficial bursa is affected. Pain is present with chronic bursitis of any location, but the intensity of pain can vary. These patients may also have limited range of motion because pain from the bursitis restricts motion of the nearby joint and surrounding muscles. Prepatellar and infrapatellar bursitis The prepatellar bursa is located in front of the patella (kneecap); the infrapatellar bursa is below this. Bursitis in these areas can result from recurrent injury to the knee and is often seen in people who frequently kneel. Prepatellar bursitis has been referred to as "condenser tester's knee" or "nun's knee." It can also happen as a result of infection, gout, or rheumatoid arthritis. Swelling occurs within the bursa, not in the knee joint itself. People with prepatellar and infrapatellar bursitis usually feel more comfortable lying down with the knee extended, while people with swelling within the true knee joint tend to feel better lying down with the knee partially bent. BURSITIS TREATMENT Bursitis treatment focuses on relieving inflammation and pain, treating infection (if present), maintaining range of motion, and preventing complications and future recurrence. Pain-relief medication In most cases, nonsteroidal antiinflammatory drugs (NSAIDs) can help relieve pain and inflammation. NSAIDs include ibuprofen (sample brand names: Advil, Motrin) and naproxen (sample brand name: Aleve); other NSAIDs, as well as higher doses, are also available by prescription. Topical NSAIDs (for example, diclofenac gel) may be an appropriate option for patients who cannot tolerate oral NSAIDs. NSAIDs are not appropriate for everyone. For example, people who take anticoagulants (blood thinners) or have a history of kidney disease, heart disease, high blood pressure, or bleeding stomach ulcers should talk with their health care provider about whether they can safely take NSAIDs. (See "Patient education: Nonsteroidal antiinflammatory drugs (NSAIDs) (Beyond the Basics)".) Protecting the joints It is important to protect the affected joints in order to rest the affected area and help the bursae to heal. Bursal protection can also prevent the bursitis from getting worse or recurring. Examples of joint protection include: Avoiding or modifying activities that cause pain The use of pads or cushions for people who have to kneel or sit frequently Treating infection Septic bursitis is a potentially very serious condition that needs to be addressed quickly. It is treated with antibiotics and (when possible) by draining any infected fluid from the bursa. The choice of which antibiotic to use, and for how long, is based on the type and severity of infection. For mild cases, a few weeks of oral antibiotics may be enough; for more severe infection, intravenous (IV) antibiotics (given in the hospital) may be required. Pending Studies at Discharge: Yes Studies:: blood cultures Stand-Alone Forms: [facility], Work/School Release (Inpt), Smoking Cessation Medications and DC Order Prescriptions: New cephalexin 500 mg capsule 500 mg PO QID 10 Days Qty: 40 RF: 0 No Action No Known Home Medications RF: 0 Discharge Orders: Discharge Order (Routine); Ordered 12/08/19 Ordered By: Hakan Jasmine Admission Data Admit Date/Time: 12/06/19 19:48 Attending Provider: Phil Proctor Admit Provider: Bruce Kamara Primary Care Provider: Can Goldstein Other Providers: Bruce Kamara ; Howie Ahuja Other Interventions: Discharge Summary Assessment (RN) Last Done: 12/08/19 12:37 DC Date/Time DO NOT enter until pt leaves facility: 12/08/19 12:56 Coding Level of Care Code D/C Day Management <30 mins Diagnoses Septic prepatellar bursitis of right knee M71.161
== END 2019-12-08 12:56 | disposition home or self-care (01) | DRG 558 ==
LOC: ED 16:02 → 2N 19:48 → SUATTDRO 19:48 → 2N 20:33